=== PATIENT | male | born 1965 | race Hispanic/Latino ===

== ENCOUNTER 2017-12-02 12:54 | Emergency (ER) | payer OTHER ==
[2017-12-02 13:17] VITALS: RESP 18; TEMP 97.6
[2017-12-02] MEDS ORDERED: Sodium Chloride 0.9% 1,000 ML IV STA (13:29)
--- NOTE | 2017-12-02 13:33 | ED PDOC ---
Arrival/HPI - General Chief Complaint: Abnormal Skin Integrity Time Seen by Provider: 12/02/17 13:21 Historian: Patient - History of Present Illness Narrative History of Present Illness (Text): 12/02/17 13:30 51 year old male, whose history includes colectomy and colostomy with reversal 15 years ago, presents to the Emergency department complaining of lower abdominal pain for 3 or 4 weeks. Patient was seen at [facility] ER twice, had a CT scan, and was diagnosed with an abscess. Patient was started on Keflex and Bactrim, but states pain is worsening. Patient denies any fever, chills, chest pain, shortness of breath, nausea, vomiting, diarrhea, urinary symptoms, back pain, neck pain, headache, dizziness, or any other complaints. Time/Duration: Other (3 or 4 weeks) Symptom Onset: Gradual Symptom Course: Unchanged Context: Home Associated Symptoms (Text): 12/02/17 13:42 Several week history of lower abdominal pain. Seen at a [facility] ER and had a CT scan and reports that he was diagnosed with an abscess. Worsening despite taking Keflex and Bactrim. Past Medical History - Provider Review Nursing Documentation Reviewed: Yes - Infectious Disease Hx of Infectious Diseases: None - Cardiac Hx Hypertension: Yes - Endocrine/Metabolic Hx Diabetes Mellitus Type 2: Yes - Psychiatric Hx Substance Use: No - Surgical History Other/Comment: colostomy bag/Past surgery for ABD infection. Family/Social History - Physician Review Nursing Documentation Reviewed: Yes Family/Social History: Unknown Family HX Smoking Status: Heavy Smoker > 10 Cigarettes Daily Hx Alcohol Use: Yes Frequency of alcohol use: Daily Hx Substance Use: No Allergies/Home Meds Allergies/Adverse Reactions: Allergies No Known Allergies Allergy (Verified 12/02/17 13:17) Home Medications: Home Meds Medication Instructions Recorded Confirmed Atorvastatin Calcium 20 mg PO DAILY 12/02/17 12/02/17 Cephalexin [cephalexin] 500 mg PO Q6 12/02/17 12/02/17 Lisinopril [Zestril] 20 mg PO DAILY 12/02/17 12/02/17 MetFORMIN [glucoPHAGE] 1 tab PO BID 12/02/17 12/02/17 Sulfamethoxazole/Trimethoprim 1 tab PO BID 12/02/17 12/02/17 [Bactrim SS 400 mg-80 mg] Review of Systems - Physician Review All systems were reviewed & negative as marked: Yes - Review of Systems Constitutional: Fatigue. absent: Fevers, Night Sweats Respiratory: absent: SOB Cardiovascular: absent: Chest Pain Gastrointestinal: Abdominal Pain. absent: Diarrhea, Nausea, Vomiting Genitourinary Male: absent: Dysuria, Frequency, Hematuria Musculoskeletal: absent: Back Pain, Neck Pain Neurological: absent: Headache, Dizziness Physical Exam Vital Signs Reviewed: Yes Vital Signs Temp Pulse Resp BP Pulse Ox 12/02/17 16:18 84 18 130/78 99 12/02/17 13:11 97.6 F 97 H 18 132/86 97 Temperature: Afebrile Blood Pressure: Normal Pulse: Regular Respiratory Rate: Normal Appearance: Positive for: Well-Appearing, Non-Toxic, Uncomfortable Pain Distress: Mild Mental Status: Positive for: Alert and Oriented X 3 - Systems Exam Head: Present: Atraumatic, Normocephalic Pupils: Present: PERRL Extroacular Muscles: Present: EOMI Conjunctiva: Present: Normal Mouth: Present: Moist Mucous Membranes Pharnyx: No: ERYTHEMA, EXUDATE, TONSILS ENLARGED Neck: Present: Normal Range of Motion Respiratory/Chest: Present: Clear to Auscultation, Good Air Exchange. No: Respiratory Distress, Accessory Muscle Use Cardiovascular: Present: Regular Rate and Rhythm, Normal S1, S2. No: Murmurs Abdomen: Present: Tenderness (left greater than right lower quadrant tenderness) , Normal Bowel Sounds, Guarding (voluntary), Scars. No: Distention, Peritoneal Signs, Rebound Back: Present: Normal Inspection. No: CVA Tenderness Upper Extremity: Present: Normal Inspection. No: Cyanosis, Edema Lower Extremity: Present: Normal Inspection. No: Edema Neurological: Present: GCS=15, CN II-XII Intact, Speech Normal, Motor Func Grossly Intact Skin: Present: Warm, Dry, Normal Color. No: Rashes Psychiatric: Present: Alert, Oriented x 3, Normal Insight, Normal Concentration Medical Decision Making ED Course and Treatment: 12/02/17 13:36 Impression: 51 year old male presents to the Emergency department complaining of lower abdominal pain. Plan: -- CT scan of the abdomen and pelvis -- Urinalysis -- Labs -- Protonix, Toradol, Sodium Chloride IV fluids -- Reassess and disposition Progress Notes: 12/02/17 18:36 Pain is markedly improved. Blood sugar is improving. Patient wants to go home. He will follow-up with Dr. Roberto. He needs a note for work. Antibiotics will be changed. - Lab Interpretations Lab Results: 12/02/17 14:35 12/02/17 14:35 Lab Results 12/02/17 18:31: POC Glucose (mg/dL) 277 H 12/02/17 16:58: POC Glucose (mg/dL) 310 H 12/02/17 14:35: Alcohol, Quantitative < 10 12/02/17 14:35: Sodium 129 L, Potassium 4.8, Chloride 99, Carbon Dioxide 21, Anion Gap 14, BUN 15, Creatinine 0.7 L, Est GFR ( Amer) > 60, Est GFR ( Non-Af Amer) > 60, Random Glucose 352 H*, Calcium 9.4, Total Bilirubin 0.6, AST 34, ALT 50, Alkaline Phosphatase 62, Total Protein 6.8, Albumin 3.6, Globulin 3.2, Albumin/Globulin Ratio 1.1, Lipase 89 12/02/17 14:35: WBC 6.4, RBC 4.44, Hgb 13.4 L, Hct 39.2 L, MCV 88.3, MCH 30.2, MCHC 34.2, RDW 12.8, Plt Count 139, MPV 10.5, Gran % 66.0, Lymph % (Auto) 26.9, Douglas % (Auto) 5.5, Eos % (Auto) 1.3 L, Baso % (Auto) 0.3, Gran # 4.20, Lymph # ( Auto) 1.7, Douglas # (Auto) 0.4, Eos # (Auto) 0.1, Baso # (Auto) 0.02 - RAD Interpretation Narrative RAD Interpretations (Text): 12/02/2017 15:46:34 PROCEDURE: CT Abdomen and Pelvis without intravenous contrast FINDINGS: LOWER THORAX: Unremarkable. LIVER: Hepatomegaly, hepatic steatosis. No focal abnormalities. GALLBLADDER AND BILE DUCTS: Unremarkable. PANCREAS: Unremarkable. No gross lesion or ductal dilatation. SPLEEN: Unremarkable. ADRENALS: Unremarkable. No mass. KIDNEYS AND URETERS: Unremarkable. No hydronephrosis. No solid mass. VASCULATURE: Unremarkable. No aortic aneurysm. BOWEL: Constipation without fecal impaction or obstruction. Postoperative changes/ surgical suture line rectosigmoid region related to colonic resection. Fluid-filled loops of small bowel likely enteritis without obstruction. APPENDIX: Prior appendectomy. Surgical clips at the base of the cecum. PERITONEUM: Unremarkable. No free fluid. No free air. LYMPH NODES: Unremarkable. No enlarged lymph nodes. BLADDER: Unremarkable. REPRODUCTIVE: Unremarkable. BONES: No acute fracture. OTHER FINDINGS: None. IMPRESSION: Findings suggestive of mild enteritis without mechanical obstruction. Otherwise No acute findings related to/accounting for the clinical presentation. Additional benign and/or incidental findings described above. Radiology Orders: 12/02/17 13:29 ABD & PELVIS W/O PO OR IV CONT [CT] Stat - Medication Orders Current Medication Orders: Sodium Chloride (Sodium Chloride 0.9%) 1,000 mls @ 500 mls/hr IV ONCE ONE Stop: 12/02/17 18:43 Last Admin: 12/02/17 17:04 Dose: 500 mls/hr eMAR Start Stop Document 12/02/17 17:04 EQ (Rec: 12/02/17 17:04 EQ [id number]) Intravenous Solution Start Date 12/02/17 Start Time 17:04 Discontinued Medications Sodium Chloride (Sodium Chloride 0.9%) 1,000 mls @ 1,000 mls/hr IV .Q1H STA Stop: 12/02/17 14:28 Last Admin: 12/02/17 14:28 Dose: 1,000 mls/hr eMAR Start Stop Document 12/02/17 14:28 EQ (Rec: 12/02/17 14:28 EQ [id number]) Intravenous Solution Start Date 12/02/17 Start Time 14:28 Insulin Human Regular (Humulin R) 20 units SC ONCE STA Stop: 12/02/17 16:02 Last Admin: 12/02/17 16:45 Dose: 20 units MAR Blood Glucose Document 12/02/17 16:45 EQ (Rec: 12/02/17 17:03 EQ [id number]) Blood Glucose Finger Stick Blood Glucose (70-120) 310 Subcutaneous Administrations Document 12/02/17 16:45 EQ (Rec: 12/02/17 17:03 EQ [id number]) Injection Site MAR Injection Site Left Deltoid Charges for Administration # of Subcutaneous Administrations 1 Ketorolac Tromethamine (Toradol) 30 mg IVP STAT STA Stop: 12/02/17 13:30 Last Admin: 12/02/17 14:27 Dose: 30 mg MAR Pain Assessment Document 12/02/17 14:27 EQ (Rec: 12/02/17 14:28 EQ [id number]) Pain Reassessment Is this a pain reassessment? No Sleep Is patient sleeping during reassessment? No Presence of Pain Presence of Pain Yes IVP Administration Document 12/02/17 14:27 EQ (Rec: 12/02/17 14:28 EQ [id number]) Charges for Administration # of IVP Administrations 1 Pantoprazole Sodium (Protonix Inj) 40 mg IVP STAT STA Stop: 12/02/17 13:30 Last Admin: 12/02/17 14:28 Dose: 40 mg IVP Administration Document 12/02/17 14:28 EQ (Rec: 12/02/17 14:28 EQ [id number]) Charges for Administration # of IVP Administrations 1 - Scribe Statement The provider has reviewed the documentation as recorded by the Scribe Connor Deshpande All medical record entries made by the Scribe were at my direction and personally dictated by me. I have reviewed the chart and agree that the record accurately reflects my personal performance of the history, physical exam, medical decision making, and the department course for this patient. I have also personally directed, reviewed, and agree with the discharge instructions and disposition. Disposition/Present on Arrival - Present on Arrival Any Indicators Present on Arrival: No History of DVT/PE: No History of Uncontrolled Diabetes: No Urinary Catheter: No History of Decub. Ulcer: No History Surgical Site Infection Following: None - Disposition Have Diagnosis and Disposition been Completed?: Yes Diagnosis: Colitis, Abdominal pain, Hyperglycemia Disposition: HOME/ ROUTINE Disposition Time: 18:37 Patient Plan: Discharge Condition: IMPROVED Discharge Instructions (ExitCare): Hyperglycemia, Adult, Acute Abdomen (Belly Pain), Inflammatory Bowel Disease Additional Instructions: Clear liquids for 24 hours. Follow-up with Dr. Roberto. Follow-up in the ER as needed. Prescriptions: Ciprofloxacin HCl [Cipro] 500 mg PO BID #20 tab Naproxen [Naprosyn] 500 mg PO BID #14 tab Referrals: Redd Roberto JD, MD [Family Provider] - Follow up with primary Forms: [employer] (Turkmen), WORK NOTE
[2017-12-02 15:00] LABS: BASO # 0.02 K/mm3 (0.0-2.0); BASO % 0.3 % (0.0-3.0); EOS # 0.1 (0.0-0.7); EOS % 1.3 % (1.5-5.0); GRAN # 4.2 (1.4-6.5); HEMOGLOBIN 13.4 g/dL (14.0-18.0); LYMPH # 1.7 (1.2-3.4); LYMPH % 26.9 % (22.0-35.0); MEAN CELL VOLUME 88.3 fl (80.0-105.0); MEAN CORPUSCULAR HEMOGLOBIN 30.2 pg (25.0-35.0); MEAN CORPUSCULAR HGB CONC 34.2 g/dl (31.0-37.0); MEAN PLATELET VOLUME 10.5 fl (7.0-11.0); MONO # 0.4 (0.1-0.6); MONO % 5.5 % (1.0-6.0); RBC 4.44 10^6/uL (3.5-6.1); RED CELL DISTRIBUTION WIDTH 12.8 % (11.5-14.5); WHITE BLOOD COUNT 6.4 10^3/ul (4.5-11.0)
[2017-12-02 15:39] LABS: ALB/GLOB RATIO 1.1 (1.1-1.8); ALBUMIN 3.6 g/dL (3.0-4.8); ALT/SGPT 50 U/L (7-56); AST/SGOT 34 U/L (17-59); BLOOD UREA NITROGEN 15 mg/dL (7-21); CALCIUM 9.4 mg/dL (8.4-10.5); GFR AFRICAN-AMERICAN > 60; GFR NON-AFRICAN AMERICAN > 60; LIPASE 89 U/L (23-300)
--- NOTE | 2017-12-02 15:48 | CT ---
PROCEDURE: CT Abdomen and Pelvis without intravenous contrast HISTORY: Left lower quadrant pain. COMPARISON: 01/05/2014 CT abdomen and pelvis. TECHNIQUE: Technique. Contrast Dose: Radiation dose: Total exam DLP = mGy-cm. This CT exam was performed using one or more of the following dose reduction techniques: Automated exposure control, adjustment of the mA and/or kV according to patient size, and/or use of iterative reconstruction technique. FINDINGS: LOWER THORAX: Unremarkable. LIVER: Hepatomegaly, hepatic steatosis. No focal abnormalities. GALLBLADDER AND BILE DUCTS: Unremarkable. PANCREAS: Unremarkable. No gross lesion or ductal dilatation. SPLEEN: Unremarkable. ADRENALS: Unremarkable. No mass. KIDNEYS AND URETERS: Unremarkable. No hydronephrosis. No solid mass. VASCULATURE: Unremarkable. No aortic aneurysm. BOWEL: Constipation without fecal impaction or obstruction. Postoperative changes/ surgical suture line rectosigmoid region related to colonic resection. Fluid-filled loops of small bowel likely enteritis without obstruction. APPENDIX: Prior appendectomy. Surgical clips at the base of the cecum. PERITONEUM: Unremarkable. No free fluid. No free air. LYMPH NODES: Unremarkable. No enlarged lymph nodes. BLADDER: Unremarkable. REPRODUCTIVE: Unremarkable. BONES: No acute fracture. OTHER FINDINGS: None. IMPRESSION: Findings suggestive of mild enteritis without mechanical obstruction. Otherwise No acute findings related to/accounting for the clinical presentation. Additional benign and/or incidental findings described above.
[2017-12-02] MEDS ORDERED: Insulin Regular 1 UNITS/0.01 ML ML SC STA (16:01)
[2017-12-02 16:18] VITALS: O2SAT 99
[2017-12-02] MEDS ORDERED: Sodium Chloride 0.9% 1,000 ML IV ONE (16:44)
[2017-12-02 19:01] VITALS: BP 127/76; PULSE 81
== END 2017-12-02 19:00 | disposition home or self-care (01) ==
LOC: ED 12:54
DX: K52.9 Noninfective gastroenteritis and colitis, unspecified (principal); E11.65 Type 2 diabetes mellitus with hyperglycemia; Z90.49 Acquired absence of other specified parts of digestive tract
CPT/HCPCS: 74176; 80053; 80320; 82948; 83690; 85025; 96374; 96375; 99283; C9113; J1885; J7040

== ENCOUNTER 2018-06-20 05:43 | Emergency (ER) | payer OTHER ==
[2018-06-20 05:52] VITALS: BMI 32.3
--- NOTE | 2018-06-20 06:17 | ED PDOC ---
Arrival/HPI - General Historian: Patient - History of Present Illness Narrative History of Present Illness (Text): 06/20/18 06:10 52 year old male, past medical history of HTN, DM, and hyperlipidemia, presents to the emergency room with a suprapubic abscess. Patient states he noticed a bump 1 week ago that progressively enlarged and became tender. The abscess has not been actively draining. He has not done anything to alleviate symptoms. Nothing aggravates his symptoms. Has had a abscess in that region before that was incised and drained years ago by Dr. Ward. Of note, patient stated that the area had a bulge after lifting heavy objects which appears to be a hernia, however he was unaware of the hernia. Denies fever, chills, nausea, vomiting, shortness of breath, cough, chest pain, palpitations, or urinary symptoms. Time/Duration: 1 week Symptom Onset: Gradual Symptom Course: Unchanged Quality: Aching Severity Level: Mild <Adair Layton - Last Filed: 06/20/18 06:42> <Roderick Garcia - Last Filed: 06/23/18 10:23> - General Chief Complaint: Male Genitourinary Time Seen by Provider: 06/20/18 06:05 Past Medical History - Provider Review Nursing Documentation Reviewed: Yes - Infectious Disease Hx of Infectious Diseases: None - Cardiac Hx Hypertension: Yes - Endocrine/Metabolic Hx Diabetes Mellitus Type 2: Yes - Psychiatric Hx Substance Use: No - Surgical History Other/Comment: colostomy bag/Past surgery for ABD infection. - Anesthesia Hx Anesthesia: Yes Hx Anesthesia Reactions: No Hx Malignant Hyperthermia: No <Adair Layton - Last Filed: 06/20/18 06:42> Family/Social History - Physician Review Nursing Documentation Reviewed: Yes Family/Social History: No Known Family HX Smoking Status: Heavy Smoker > 10 Cigarettes Daily Hx Alcohol Use: Yes (weekends) Hx Substance Use: No <Adair Layton - Last Filed: 06/20/18 06:42> Allergies/Home Meds <Adair Layton - Last Filed: 06/20/18 06:42> <Roderick Garcia - Last Filed: 06/23/18 10:23> Allergies/Adverse Reactions: Allergies No Known Allergies Allergy (Verified 06/23/18 05:22) Review of Systems - Physician Review All systems were reviewed & negative as marked: Yes - Review of Systems Constitutional: absent: Fevers Eyes: absent: Vision Changes ENT: absent: Hearing Changes Respiratory: absent: SOB, Cough Cardiovascular: absent: Chest Pain, Palpitations Gastrointestinal: absent: Abdominal Pain, Nausea, Vomiting Genitourinary Male: absent: Dysuria, Hematuria Musculoskeletal: absent: Arthralgias Skin: Skin Lesions, Abscess. absent: Rash Neurological: absent: Headache, Dizziness Endocrine: absent: Diaphoresis <Adair Layton - Last Filed: 06/20/18 06:42> Physical Exam Vital Signs Reviewed: Yes Vital Signs Temp Pulse Resp BP Pulse Ox 06/20/18 05:53 98.5 F 84 18 150/97 H 97 Temperature: Afebrile Blood Pressure: Hypertensive Pulse: Regular Respiratory Rate: Normal Appearance: Positive for: Well-Appearing, Non-Toxic, Comfortable Pain Distress: Mild Mental Status: Positive for: Alert and Oriented X 3 - Systems Exam Head: Present: Atraumatic, Normocephalic Pupils: Present: PERRL Extroacular Muscles: Present: EOMI Mouth: Present: Moist Mucous Membranes Respiratory/Chest: Present: Clear to Auscultation, Good Air Exchange. No: Respiratory Distress, Accessory Muscle Use Cardiovascular: Present: Regular Rate and Rhythm, Normal S1, S2. No: Murmurs Abdomen: Present: Hernias (left inguinal hernia ). No: Tenderness, Distention, Peritoneal Signs Skin: Present: Erythematous, Abscess (suprapubic abscess) Psychiatric: Present: Alert, Oriented x 3, Normal Insight, Normal Concentration <Adair Layton - Last Filed: 06/20/18 06:42> Vital Signs Temp Pulse Resp BP Pulse Ox 06/20/18 05:53 98.5 F 84 18 150/97 H 97 <Roderick Garcia - Last Filed: 06/23/18 10:23> Medical Decision Making ED Course and Treatment: 06/20/18 06:19 52M, PMH of HTN, DM, HLD, and diverticulitis and PSH of colostomy s/p reversal, presents to ED with suprapubic abscess. IV antibiotic given I&D abscess Reasess 06/20/18 06:23 Patient will go home with antibiotics. To complete full course. Please keep wound clean. Okay to shower but avoid baths or large bodies of water for 2 weeks. Tylenol for pain. Please see Dr. Roberto or return to ED for packing removal in 2 days. Please follow up with PMD within 3-5 days. If symptoms worsen, such as fever, return to ED. Patient verbalized understanding and agreement of treatment plan. Case reviewed and discussed with attending provider. 06/20/18 06:48 - RAD Interpretation Radiology Orders: 06/20/18 06:08 ABD & PELVIS IV CONTRAST ONLY [CT] Stat - Medication Orders Current Medication Orders: Acetaminophen (Tylenol 325mg Tab) 650 mg PO STAT STA Stop: 06/20/18 06:11 <Adair Layton - Last Filed: 06/20/18 06:42> ED Course and Treatment: Impression: Pt seen and evaluated with diploma medical assistant. Aware and agree with HPI, clinical findings, plan, and management. Pt, whose past medical history includes hypertension, diabetes, and hyperlipidemia, presented for a suprapubic abscess. Plan: -- CT Abdomen and Pelvis -- Labs -- Ancef -- Tylenol -- Reassess and disposition - Medication Orders Current Medication Orders: Cefazolin Sodium (Ancef 1gm In Ns) 1 gm in 100 mls @ 100 mls/hr IVPB STAT STA Stop: 06/20/18 07:23 Discontinued Medications Acetaminophen (Tylenol 325mg Tab) 650 mg PO STAT STA Stop: 06/20/18 06:11 <Roderick Garcia - Last Filed: 06/23/18 10:23> Procedures - Incision and Drainage Site: Suprapubic region Blade Size: 11 I & D Procedure: betadine prep, sterile drapes applied, sterile dressing applied Progress: 1% Lido w/ Epi. Incision made, deloculated, and packed with iodoform gauze. Abdominal pad placed over wound. Patient tolerated procedure with no complications. <Adair Layton - Last Filed: 06/20/18 06:42> - PA / SALES REPRESENTATIVE ADDING MACHINES / Resident Statement / has reviewed & agrees with the documentation as recorded. THOMAS has examined the patient and agrees with the treatment plan. <Roderick Garcia - Last Filed: 06/23/18 10:23> Disposition/Present on Arrival - Present on Arrival Any Indicators Present on Arrival: No History of DVT/PE: No History of Uncontrolled Diabetes: No Urinary Catheter: No History of Decub. Ulcer: No History Surgical Site Infection Following: None - Disposition Have Diagnosis and Disposition been Completed?: Yes Disposition Time: 06:42 Patient Plan: Discharge <Adair Layton - Last Filed: 06/20/18 06:42> - Present on Arrival Any Indicators Present on Arrival: No - Disposition Have Diagnosis and Disposition been Completed?: Yes <Roderick Garcia - Last Filed: 06/23/18 10:23> - Disposition Diagnosis: Suprapubic abscess Disposition: HOME/ ROUTINE Condition: GOOD Discharge Instructions (ExitCare): Abscess Incision and Drainage (DC) Additional Instructions: Please return to ED or follow up with Dr. Roberto in 2 days to remove packing. Please follow up with Dr. Roberto in 5 days. Please take antibiotics as prescribed and complete course. Okay to shower. Avoid baths and large bodies of water. Keep area clean. If symptoms worsen, please return to the ED. Referrals: Redd Roberto JD, MD [Primary Care Provider] - Follow up with primary Forms: [employer] (Croatian), WORK NOTE
[2018-06-20] MEDS ORDERED: ceFAZolin 1 gm in NS 1 GM/100 ML BAG IVPB STA (06:24)
[2018-06-20 08:48] VITALS: BP 132/84; PULSE 80; RESP 17; TEMP 98.1; O2SAT 98
== END 2018-06-20 08:54 | disposition home or self-care (01) ==
LOC: ED 05:43
DX: L02.211 Cutaneous abscess of abdominal wall (principal)
CPT/HCPCS: 10060; 96365; 99284; J0690

== ENCOUNTER 2018-06-23 04:49 | Emergency (ER) | payer SELFPAY ==
[2018-06-23 04:49] VITALS: BMI 32.3
[2018-06-23] MEDS ORDERED: Tmp-Smz 800 mg-160 mg DS Tab PO STA (05:30)
--- NOTE | 2018-06-23 05:36 | ED PDOC ---
Arrival/HPI - General Chief Complaint: Wound Check Time Seen by Provider: 06/23/18 05:25 Historian: Patient - History of Present Illness Narrative History of Present Illness (Text): 06/23/18 05:25 52 year old male, whose past medical history includes hypertension, diabetes, and hyperlidemia, presents to the emergency department for packing removal. Patient states he had a packing placed 3 days ago after an I&D of an abscess at the suprapubic area. He was told to go get it removed in 2 days by his PMD, but states his PMD is closed today so he decided to come to the ER to get it removed. Patient denies any other complaints. Patient denies any fever, chills, abdominal pain, nausea, vomiting, diarrhea, urinary symptoms, rash, or any other complaints. PMD: Dr. Roberto Symptom Onset: Gradual Symptom Course: Unchanged Activities at Onset: Light Context: Home Past Medical History - Provider Review Nursing Documentation Reviewed: Yes - Infectious Disease Hx of Infectious Diseases: None - Cardiac Hx Hypertension: Yes - Endocrine/Metabolic Hx Diabetes Mellitus Type 2: Yes - Psychiatric Hx Substance Use: No - Surgical History Other/Comment: colostomy bag/Past surgery for ABD infection. - Anesthesia Hx Anesthesia: Yes Hx Anesthesia Reactions: No Hx Malignant Hyperthermia: No Family/Social History - Physician Review Nursing Documentation Reviewed: Yes Family/Social History: No Known Family HX Smoking Status: Heavy Smoker > 10 Cigarettes Daily Hx Alcohol Use: Yes (weekends) Hx Substance Use: No Allergies/Home Meds Allergies/Adverse Reactions: Allergies No Known Allergies Allergy (Verified 06/23/18 05:22) Review of Systems - Physician Review All systems were reviewed & negative as marked: Yes - Review of Systems Constitutional: absent: Fevers, Other (Chills) Gastrointestinal: absent: Abdominal Pain, Diarrhea, Nausea, Vomiting Genitourinary Male: absent: Dysuria, Frequency, Hematuria Skin: Other (packing removal at the suprapubic area). absent: Rash Physical Exam - Physical Exam Narrative Physical Exam (Text): Gen: VS reviewed, alert, well developed, well nourished, nontoxic, mild distress. ENT: normal pharynx. Eye: EOMI, PERRL. Neck: no JVD, supple, no adenopathy. CV: regular rate, regular rhythm, no rubs, no murmur, no gallops, S1, S2, pulses equal and strong. Pulm: no distress, clear to auscultation, no wheeze, no rhonchi, breath sounds equal, no rales. Abd: Suprapubic open area currently draining, however no packing in place. No surrounding cellulitic skin changes. soft, nontender, no guarding, no rebound, no rigidity, normal bowel sounds. Ext: no edema. Skin: good color, no rash, no cyanosis. Psych: responds appropriately to questions, normal affect. Neuro: oriented x 3, CN2-12 intact grossly, motor intact, sensation intact. Vital Signs Reviewed: Yes Vital Signs Temp Pulse Resp BP Pulse Ox 06/23/18 05:18 98.4 F 77 16 123/77 96 Temperature: Afebrile Blood Pressure: Normal Pulse: Regular Respiratory Rate: Normal Medical Decision Making ED Course and Treatment: 06/23/18 05:30 Impression: 52 year old male presents for packing removal. PE shows no packing in place. Plan: -- Bactrim DS Tab -- Reassess and disposition Prior Visits: Notes and results from previous visits were reviewed. Patient was last seen in the emergency department on 06/20/18 presents complaining of a suprapubic abscess that began 1 week ago. I&D done and patient was discharged home. Progress Notes: 06/23/18 05:40 Patient presents for packing removal which patient likely dislodged while taking a shower. Will give antibiotics for MRSA coverage. Patient is stable for discharge. - Medication Orders Current Medication Orders: Trimethoprim/Sulfamethoxazole (Bactrim Ds Tab) 1 tab PO STAT STA; Protocol Stop: 06/23/18 05:31 - Scribe Statement The provider has reviewed the documentation as recorded by the Royer Morton Provider Scribe Attestation: All medical record entries made by the Royer were at my direction and personally dictated by me. I have reviewed the chart and agree that the record accurately reflects my personal performance of the history, physical exam, medical decision making, and the department course for this patient. I have also personally directed, reviewed, and agree with the discharge instructions and disposition. Disposition/Present on Arrival - Present on Arrival Any Indicators Present on Arrival: No History of DVT/PE: No History of Uncontrolled Diabetes: No Urinary Catheter: No History of Decub. Ulcer: No History Surgical Site Infection Following: None - Disposition Have Diagnosis and Disposition been Completed?: Yes Diagnosis: Skin abscess Disposition: HOME/ ROUTINE Disposition Time: 19:25 Condition: STABLE Discharge Instructions (ExitCare): Skin Abscess Additional Instructions: MAGDA DEL VALLE, thank you for letting us take care of you today. Your provider was Dr. Moose Rainey and you were treated for skin abscess. The emergency medical care you received today was directed at your acute symptoms. If you were prescribed any medication, please fill it and take as directed. It may take several days for your symptoms to resolve. Return to the Emergency Department if your symptoms worsen, do not improve, or if you have any other problems. Please contact your doctor or call one of the physicians/clinics you have been referred to that are listed on the Patient Visit Information form that is included in your discharge packet. Bring any paperwork you were given at discharge with you along with any medications you are taking to your follow up visit. Our treatment cannot replace ongoing medical care by a primary care provider outside of the emergency department. Thank you for allowing the [facility] team to be part of your care today. If you had an X-Ray or CT scan: A Radiologist will review the ED reading if any change in treatment is needed we will contact you. If you had a blood, urine, or wound culture: It will take several days for the results, if any change in treatment is needed we will contact you. If you had an STI test: It will take 48 hours for the results. Please call after 1 week if you have not heard back. Prescriptions: Sulfamethoxazole/Trimethoprim [Bactrim DS 800 mg-160 mg] 1 tab PO BID 7 Days #14 tab Referrals: Redd Roberto JD, MD [Primary Care Provider] - Follow up with primary Forms: [employer] (Mongolian), WORK NOTE
[2018-06-23 05:52] VITALS: PULSE 77; RESP 16
[2018-06-23 07:03] VITALS: BP 120/67; TEMP 98.2; O2SAT 97
== END 2018-06-23 06:07 | disposition home or self-care (01) ==
LOC: ED 04:49
DX: L02.211 Cutaneous abscess of abdominal wall (principal)

== ENCOUNTER 2018-07-16 12:56 | Emergency (ER) | payer OTHER ==
[2018-07-16 12:57] VITALS: BMI 32.3
[2018-07-16 13:30] VITALS: BP 118/87; PULSE 89; RESP 16; TEMP 98.7; O2SAT 96
--- NOTE | 2018-07-16 14:13 | ED PDOC ---
Arrival/HPI - General Chief Complaint: Abnormal Skin Integrity Time Seen by Provider: 07/16/18 14:07 Historian: Patient - History of Present Illness Narrative History of Present Illness (Text): 07/16/18 14:07 52 y/o male, pmh including suprapubic abscess, nkda, c/o here for the evaluation of the suprapubic region. Pt. stated that he sweats alot, noticed wet spot on the suprapubic today, concerning there is an abscess that needs to be drained, no fever or chills, no swelling, no palpitation, no rash, no night sweat, no numbness or tingling, no other medical or psychological complaints. Past Medical History - Provider Review Nursing Documentation Reviewed: Yes - Infectious Disease Hx of Infectious Diseases: None - Cardiac Hx Cardiac Disorders: Yes Hx Hypertension: Yes - Pulmonary Hx Respiratory Disorders: No - Neurological Hx Neurological Disorder: No - HEENT Hx HEENT Disorder: No - Renal Hx Renal Disorder: No - Endocrine/Metabolic Hx Endocrine Disorders: Yes Hx Diabetes Mellitus Type 2: Yes - Hematological/Oncological Hx Blood Disorders: No - Integumentary Hx Dermatological Disorder: No - Musculoskeletal/Rheumatological Hx Musculoskeletal Disorders: No - Gastrointestinal Hx Gastrointestinal Disorders: No - Genitourinary/Gynecological Hx Genitourinary Disorders: No - Psychiatric Hx Psychophysiologic Disorder: No Hx Substance Use: No - Surgical History Other/Comment: colostomy bag/Past surgery for ABD infection. - Anesthesia Hx Anesthesia: Yes Hx Anesthesia Reactions: No Hx Malignant Hyperthermia: No Family/Social History - Physician Review Nursing Documentation Reviewed: Yes Family/Social History: Unknown Family HX Smoking Status: Heavy Smoker > 10 Cigarettes Daily Hx Alcohol Use: Yes (weekends) Hx Substance Use: No Allergies/Home Meds Allergies/Adverse Reactions: Allergies No Known Allergies Allergy (Verified 07/16/18 13:29) Home Medications: Home Meds Medication Instructions Recorded Confirmed Atorvastatin [Lipitor] 20 mg PO DAILY 07/16/18 07/16/18 Lisinopril [Zestril] 20 mg PO DAILY 07/16/18 07/16/18 metFORMIN [glucOPHAGE] 500 mg PO BID 07/16/18 07/16/18 Review of Systems - Review of Systems Constitutional: absent: Fatigue, Fevers Eyes: absent: Vision Changes ENT: absent: Hearing Changes Respiratory: absent: SOB, Cough Cardiovascular: absent: Chest Pain Gastrointestinal: absent: Abdominal Pain, Diarrhea, Nausea, Vomiting Musculoskeletal: absent: Arthralgias, Back Pain Skin: absent: Rash, Pruritis Neurological: absent: Headache, Dizziness Psychiatric: absent: Anxiety, Depression Physical Exam Vital Signs Reviewed: Yes Vital Signs Temp Pulse Resp BP Pulse Ox 07/16/18 13:29 98.7 F 89 16 118/87 96 Temperature: Afebrile Blood Pressure: Normal Pulse: Regular Respiratory Rate: Normal Appearance: Positive for: Well-Appearing, Non-Toxic, Comfortable Pain Distress: None Mental Status: Positive for: Alert and Oriented X 3 - Systems Exam Head: Present: Atraumatic, Normocephalic Pupils: Present: PERRL Extroacular Muscles: Present: EOMI Conjunctiva: Present: Normal Mouth: Present: Moist Mucous Membranes Neck: Present: Normal Range of Motion Respiratory/Chest: Present: Clear to Auscultation, Good Air Exchange. No: Respiratory Distress, Accessory Muscle Use Cardiovascular: Present: Regular Rate and Rhythm, Normal S1, S2. No: Murmurs Abdomen: No: Tenderness, Distention, Peritoneal Signs Back: Present: Normal Inspection Upper Extremity: Present: Normal Inspection. No: Cyanosis, Edema Lower Extremity: Present: Normal Inspection. No: Edema Neurological: Present: GCS=15, CN II-XII Intact, Speech Normal Skin: Present: Warm, Dry, Normal Color, Other (I examined the suprapubic and genital region with SCREEN PRINTING STENCIL [employer]PARER Mary, there is no visible or palpable lesion or abscess noted. ). No: Rashes Psychiatric: Present: Alert, Oriented x 3, Normal Insight, Normal Concentration Medical Decision Making ED Course and Treatment: 07/16/18 14:16 -Sonogram examined on the bed side, no visible under the skin abscess or lesions, physically doesn't see any abscess either. -Pt. feels well, no pain, he doesn't feel any lump either, reassurance, advised pmd and surgeon follow up as needed. 07/16/18 14:24 -Discharge home with education on follow up with your own pmd and surgeon within 2 days, return to the ER for any new or worsening signs or symptoms. - PA / PAPER CORE MACHINE OPERATOR / Resident Statement MD/DO has reviewed & agrees with the documentation as recorded. Disposition/Present on Arrival - Present on Arrival Any Indicators Present on Arrival: No History of DVT/PE: No History of Uncontrolled Diabetes: No Urinary Catheter: No History of Decub. Ulcer: No History Surgical Site Infection Following: None - Disposition Have Diagnosis and Disposition been Completed?: Yes Diagnosis: General medical examination Disposition: HOME/ ROUTINE Disposition Time: 14:25 Patient Plan: Discharge Condition: GOOD Additional Instructions: -Discharge home with education on follow up with your own pmd and surgeon within 2 days, return to the ER for any new or worsening signs or symptoms. Referrals: Redd Roberto JD, MD [Primary Care Provider] - Follow up with primary Chris Nunez MD [Staff Provider] - Follow up with primary Forms: [facility] (Korean), WORK NOTE
== END 2018-07-16 14:33 | disposition home or self-care (01) ==
LOC: ED 12:56
DX: Z00.00 Encounter for general adult medical examination without abnormal findings (principal); E11.9 Type 2 diabetes mellitus without complications; I10 Essential (primary) hypertension; F17.210 Nicotine dependence, cigarettes, uncomplicated

== ENCOUNTER 2018-08-28 10:50 | Emergency (ER) | payer OTHER ==
[2018-08-28 11:01] VITALS: BMI 33.3
[2018-08-28] MEDS ORDERED: Lidocaine 1% Inj (20ml) IJ STA (11:16)
[2018-08-28] MEDS ORDERED: Lidocaine PF 2% (5 ml) Inj (For Cardiac Arrhy) IJ STA (11:16)
--- NOTE | 2018-08-28 11:33 | ED PDOC ---
Arrival/HPI - General Chief Complaint: Groin Pain Time Seen by Provider: 08/28/18 11:05 Historian: Patient - History of Present Illness Narrative History of Present Illness (Text): 08/28/18 11:30 Patient is a 52 year old male, whose past medical history includes hypertension, diabetes, hyperlipidemia, and diverticulitis and PSxHx of colostomy s/p reversal, with hx of suprapubic abscess surgically drained by Dr. Kelsye presents to ED with suprapubic abscess. He was seen in ED on 06/20 for suprapubic abscess and had I&D. He reports that packing fell out and he thought he was fine. He reports that a pinpoint area has remained open s/p I&D and is now draining purulent material. Denies fever. Reports normal bowel and bladder habits. Denies abdominal pain. Denies fevers, chills, headache, dizziness, chest pain, shortness of breath, dyspnea on exertion, cough, abdominal pain, nausea, vomiting, diarrhea, back pain, neck pain, or any other complaint. Symptom Onset: Gradual Symptom Course: Unchanged Activities at Onset: Light Context: Home Past Medical History - Provider Review Nursing Documentation Reviewed: Yes - Infectious Disease Hx of Infectious Diseases: None - Cardiac Hx Cardiac Disorders: Yes Hx Hypertension: Yes - Pulmonary Hx Respiratory Disorders: No - Neurological Hx Neurological Disorder: No - HEENT Hx HEENT Disorder: No - Renal Hx Renal Disorder: No - Endocrine/Metabolic Hx Endocrine Disorders: Yes Hx Diabetes Mellitus Type 2: Yes - Hematological/Oncological Hx Blood Disorders: No - Integumentary Hx Dermatological Disorder: No - Musculoskeletal/Rheumatological Hx Musculoskeletal Disorders: No - Gastrointestinal Hx Gastrointestinal Disorders: No - Genitourinary/Gynecological Hx Genitourinary Disorders: No - Psychiatric Hx Psychophysiologic Disorder: No Hx Substance Use: No - Surgical History Other/Comment: colostomy bag/Past surgery for ABD infection. - Anesthesia Hx Anesthesia: Yes Hx Anesthesia Reactions: No Hx Malignant Hyperthermia: No Family/Social History - Physician Review Nursing Documentation Reviewed: Yes Family/Social History: No Known Family HX Smoking Status: Heavy Smoker > 10 Cigarettes Daily Hx Alcohol Use: Yes (weekends) Hx Substance Use: No Allergies/Home Meds Allergies/Adverse Reactions: Allergies No Known Allergies Allergy (Verified 07/16/18 13:29) Home Medications: Home Meds Medication Instructions Recorded Confirmed Atorvastatin [Lipitor] 20 mg PO DAILY 07/16/18 07/16/18 Lisinopril [Zestril] 20 mg PO DAILY 07/16/18 07/16/18 metFORMIN [glucOPHAGE] 500 mg PO BID 07/16/18 07/16/18 Review of Systems - Review of Systems Constitutional: absent: Fevers Eyes: absent: Vision Changes Respiratory: absent: SOB, Cough Cardiovascular: absent: Chest Pain Gastrointestinal: absent: Abdominal Pain, Constipation, Diarrhea, Nausea, Vomiting Genitourinary Male: absent: Dysuria Musculoskeletal: absent: Back Pain, Neck Pain Skin: Other (suprapubic drainage). absent: Abscess Neurological: absent: Headache, Dizziness Psychiatric: absent: Anxiety Physical Exam Vital Signs Reviewed: Yes Vital Signs Temp Pulse Resp BP Pulse Ox 08/28/18 11:12 97.8 F 85 18 151/86 H 95 Temperature: Afebrile Blood Pressure: Hypertensive Pulse: Regular Respiratory Rate: Normal Appearance: Positive for: Well-Appearing, Non-Toxic, Comfortable Pain Distress: None Mental Status: Positive for: Alert and Oriented X 3 - Systems Exam Head: Present: Atraumatic, Normocephalic Pupils: Present: PERRL Extroacular Muscles: Present: EOMI Conjunctiva: Present: Normal Mouth: Present: Moist Mucous Membranes Neck: Present: Normal Range of Motion Respiratory/Chest: Present: Clear to Auscultation, Good Air Exchange. No: Respiratory Distress, Accessory Muscle Use Cardiovascular: Present: Regular Rate and Rhythm, Normal S1, S2. No: Murmurs Abdomen: No: Tenderness, Distention, Peritoneal Signs Genitourinary Male: Present: Normal External Genitalia. No: Testicle Tenderness, Penile Swelling Back: Present: Normal Inspection Upper Extremity: Present: Normal Inspection. No: Cyanosis, Edema Lower Extremity: Present: Normal Inspection. No: Edema Neurological: Present: GCS=15, CN II-XII Intact, Speech Normal Skin: Present: Warm, Dry, Normal Color, Abscess (pinpoint area draining purulent material in the subrapubic area, no surrounding erythema). No: Rashes Psychiatric: Present: Alert, Oriented x 3, Normal Insight, Normal Concentration Medical Decision Making ED Course and Treatment: 08/28/18 11:32 Impression: 52 year old male who presents to the emergency department complaining of suprapubic abscess. Plan: -- CT of Abdomen and Pelvis -- Labs -- I&D -- Reassess and disposition Prior Visits: Notes and results from previous visits were reviewed. Progress Notes: Spoke to Dr. Kelsey. He reports that patient can be discharged to follow- up in his office after I&D if labs normal 08/28/18 11:58 08/28/18 14:58 FINDINGS: LOWER THORAX: Unremarkable. LIVER: Hepatic steatosis. No focal masses. No intrahepatic bile duct dilatation or perihepatic ascites. GALLBLADDER AND BILE DUCTS: Collapsed/unremarkable. PANCREAS: Unremarkable. No gross lesion or ductal dilatation. SPLEEN: Unremarkable. ADRENALS: Unremarkable. No mass. KIDNEYS AND URETERS: Unremarkable. No hydronephrosis. No solid mass. VASCULATURE: Unremarkable. No aortic aneurysm. No atherosclerotic calcification or mural plaque present. BOWEL: Suture line sigmoid colon region, unremarkable without evidence obstruction or other pathologic process. APPENDIX: Normal appendix. PERITONEUM: Unremarkable. No free fluid. No free air. LYMPH NODES: Unremarkable. No enlarged lymph nodes. BLADDER: Unremarkable. REPRODUCTIVE: Suprapubic inflammatory change/scarring improved considerably compared to the prior study 12/02/2017. BONES: No acute fracture. OTHER FINDINGS: Interval improvement in inflammatory changes extending from the base of the penis superiorly over a distance of approximately 6 cm. The findings are best visualized on sagittal series 602/image 83 there is interval improvement with respect to the inflammatory component seen previously. No drainable collection identified. No evidence of violation of the peritoneal cavity. IMPRESSION: Interval improvement in suprapubic midline inflammatory changes seen previously. No evidence of fistulous communication, sinus tract with the pelvic intraperitoneal structures. Additional benign and/or incidental findings described above. 08/28/18 15:19 I&D was performed. Patient instructed to follow-up with his surgeon - Lab Interpretations I have reviewed the lab results: Yes - RAD Interpretation Radiology Orders: 08/28/18 11:25 ABD & PELVIS IV CONTRAST ONLY [CT] Stat - Medication Orders Current Medication Orders: Discontinued Medications Lidocaine HCl (Lidocaine 1% (20ml)) 5 ml IJ STAT STA Stop: 08/28/18 11:17 Lidocaine HCl (Lidocaine Hydrochloride Pf 2% 5 Ml) 5 ml IJ STAT STA Stop: 08/28/18 11:17 - Procedure PROCEDURE NOTE (Text): 08/28/18 15:12 Procedure: Incision & Drainage Performed by the emergency provider Indication: Abscess Location: suprapubic area Preparation: The area was prepped and draped in the usual sterile fashion and was cleansed. Local infiltration of Lidocaine 1% with Epi was used for anesthesia. Procedure: The most fluctuant portion of the abscess was incised with a #10 sca lpel. Purulent drainage return. No locaulations. Wound superficially explored. Packing inserted. A dressing was applied. Post-Procedure: The patient tolerated the procedure well, and there were no complications. Cultured: no 08/28/18 15:18 - Scribe Statement The provider has reviewed the documentation as recorded by the Scribe Tanya Roman Provider Scribe Attestation: All medical record entries made by the Scribe were at my direction and personally dictated by me. I have reviewed the chart and agree that the record accurately reflects my personal performance of the history, physical exam, medical decision making, and the department course for this patient. I have also personally directed, reviewed, and agree with the discharge instructions and disposition. Disposition/Present on Arrival - Present on Arrival Any Indicators Present on Arrival: No History of DVT/PE: No History of Uncontrolled Diabetes: No Urinary Catheter: No History of Decub. Ulcer: No History Surgical Site Infection Following: None - Disposition Have Diagnosis and Disposition been Completed?: Yes Diagnosis: Suprapubic abscess Disposition: HOME/ ROUTINE Disposition Time: 15:11 Patient Problems: Current Active Problems Problem Status Onset Suprapubic abscess Acute Condition: GOOD Discharge Instructions (ExitCare): Abscess Incision and Drainage Additional Instructions: Follow-up with Dr. Russ. Return to ED if condition worsens. Keep packing in place. Return to ED in 2 days for wound check. Referrals: Blake Kelsey MD [Staff Provider] - Follow up with primary Forms: [facility] (Macanese), WORK NOTE
[2018-08-28 12:49] LABS: BASO # 0.01 K/mm3 (0.0-2.0); BASO % 0.2 % (0.0-3.0); EOS # 0.1 (0.0-0.7); EOS % 1.4 % (1.5-5.0); GRAN # 4.15 (1.4-6.5); GRAN % 62.8 % (50.0-68.0); LYMPH # 1.9 (1.2-3.4); LYMPH % 29.4 % (22.0-35.0); MEAN CELL VOLUME 88.8 fl (80.0-105.0); MEAN CORPUSCULAR HEMOGLOBIN 32.2 pg (25.0-35.0); MEAN CORPUSCULAR HGB CONC 36.2 g/dl (31.0-37.0); MEAN PLATELET VOLUME 11.2 fl (7.0-11.0); MONO # 0.4 (0.1-0.6); MONO % 6.2 % (1.0-6.0); RBC 4.66 10^6/uL (3.5-6.1); RED CELL DISTRIBUTION WIDTH 13.9 % (11.5-14.5); WHITE BLOOD COUNT 6.6 10^3/uL (4.5-11.0)
[2018-08-28 13:00] LABS: ALB/GLOB RATIO 1.1 (1.1-1.8); ALBUMIN 4.4 g/dL (3.0-4.8); ALT/SGPT 37 U/L (7-56); AST/SGOT 54 U/L (17-59); BLOOD UREA NITROGEN 16 mg/dL (7-21); GFR NON-AFRICAN AMERICAN > 60
[2018-08-28 13:59] VITALS: RESP 16; TEMP 97.7; O2SAT 96
--- NOTE | 2018-08-28 14:52 | CT ---
Date of service: 08/28/2018 PROCEDURE: CT Abdomen and Pelvis with contrast HISTORY: persistent suprapubic abscess COMPARISON: 12/02/2017 TECHNIQUE: Intravenous contrast dose: 150 cc Omnipaque 350 Radiation dose: Total exam DLP = 928.29 mGy-cm. This CT exam was performed using one or more of the following dose reduction techniques: Automated exposure control, adjustment of the mA and/or kV according to patient size, and/or use of iterative reconstruction technique. FINDINGS: LOWER THORAX: Unremarkable. LIVER: Hepatic steatosis. No focal masses. No intrahepatic bile duct dilatation or perihepatic ascites. GALLBLADDER AND BILE DUCTS: Collapsed/unremarkable. PANCREAS: Unremarkable. No gross lesion or ductal dilatation. SPLEEN: Unremarkable. ADRENALS: Unremarkable. No mass. KIDNEYS AND URETERS: Unremarkable. No hydronephrosis. No solid mass. VASCULATURE: Unremarkable. No aortic aneurysm. No atherosclerotic calcification or mural plaque present. BOWEL: Suture line sigmoid colon region, unremarkable without evidence obstruction or other pathologic process. APPENDIX: Normal appendix. PERITONEUM: Unremarkable. No free fluid. No free air. LYMPH NODES: Unremarkable. No enlarged lymph nodes. BLADDER: Unremarkable. REPRODUCTIVE: Suprapubic inflammatory change/scarring improved considerably compared to the prior study 12/02/2017. BONES: No acute fracture. OTHER FINDINGS: Interval improvement in inflammatory changes extending from the base of the penis superiorly over a distance of approximately 6 cm. The findings are best visualized on sagittal series 602/image 83 there is interval improvement with respect to the inflammatory component seen previously. No drainable collection identified. No evidence of violation of the peritoneal cavity. IMPRESSION: Interval improvement in suprapubic midline inflammatory changes seen previously. No evidence of fistulous communication, sinus tract with the pelvic intraperitoneal structures. Additional benign and/or incidental findings described above.
[2018-08-28 15:20] VITALS: BP 134/90; PULSE 80
== END 2018-08-28 15:17 | disposition home or self-care (01) ==
LOC: ED 10:50
DX: L02.211 Cutaneous abscess of abdominal wall (principal)
CPT/HCPCS: 10060; 74177; 80053; 85025; 99283; Q9967